=== PATIENT | male | born 1975 | race Two or more races ===

== ENCOUNTER 2022-08-18 15:58 | Emergency (ER) | payer OTHER, SELFPAY ==
[2022-08-18 16:19] VITALS: BP 151/95; BP 168/105; PULSE 115; RESP 20; TEMP 36.8; O2SAT 99; BMI 29.9
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
== END 2022-08-18 17:41 | disposition home or self-care (01) ==
PROVIDERS: Emergency Provider Emergency Medicine
DX: Z04.1 Encounter for examination and observation following transport accident (principal); R40.4 Transient alteration of awareness; T40.1X1A Poisoning by heroin, accidental (unintentional), initial encounter; Y92.414 Local residential or business street as the place of occurrence of the external cause; F11.10 Opioid abuse, uncomplicated
CPT/HCPCS: 99282